=== PATIENT | female | born 1960 | race Caucasian/White ===

== ENCOUNTER 2016-10-10 14:57 | Emergency (ER) | payer OTHER ==
[~2016-10-10] VITALS: Ht 154.9 cm; Wt 57.3 kg
[~2016-10-10 14:57] MED LIST: ALBU6.7H INH; PRED20 PO; ZITH250T PO
[2016-10-10 15:10] VITALS: BP 109/72; PULSE 93; RESP 19; TEMP 98; O2SAT 97
[2016-10-10 15:15] VITALS: O2SAT 93
[2016-10-10 15:30] VITALS: O2SAT 95
[2016-10-10] MEDS: RESP: ALBUTEROL 2.5 MG/IPRATROPIUM 0.5 MG NEB (SCH) INH (15:30)
[2016-10-10] MEDS ORDERED: methylPREDNISolone SOD SUCC 125 MG/2 ML VIAL IVP ONE (15:30)
[2016-10-10] MEDS ORDERED: SODIUM CHLORIDE 0.9% FLUSH 10 ML FLUSH IVF PRN (15:30)
--- NOTE | 2016-10-10 15:33 | PD ---
HPI Chief Complaint: Respiratory Symptoms Time Seen by Provider: 15:18 Travel History International Travel<30 days: No Contact w/Intl Traveler<30days: No Traveled to known affect area: No History of Present Illness HPI 55 yo F arrives with dyspnea for about 1 week. Frequent cough reported. Pt seen here for apparent COPD about 1 year prior and received Albuterol inhaler which had conferred benefit until last day or two. Multiple family members with similar syndrome of cough, fever, rhinorrhea. Pt describes a "stuck" feeling in her chest however denies chest pain specifically. Pt somewhat equivocal about presence or absence of fever; as noted it appears family members did have fevers recently. MERIDA and orthopnea reported. PFSH Past Medical History Cardiovascular Problems: Yes (PALPITATIONS) Reproductive: Yes (CERVICAL DYSPLASIA-RESOLVED) ?: Not Menopausal: Yes : 3 Para: 3 Past Surgical History Section: Yes (X1) Tonsillectomy: Yes Social History Alcohol Use: Yes (SELDOM) Tobacco Use: Yes (1/2 PPD) Substance Use: No Allergies-Medications (Allergen,Severity, Reaction): Coded Allergies: Aspirin (Verified Adverse Reaction, Severe, Bleeding, 04/28/15) Reported Meds & Prescriptions Reported Meds & Active Scripts Active Cephalexin 500 Mg Tab 500 Mg PO Q6H Medrol Dosepak (Methylprednisolone) 4 Mg Dspk 4 Mg PO DIRECTED Per Pharmacist direction Ventolin Hfa 18 GM Inh (Albuterol Sulfate) 90 Mcg/Act Aer 2 Puff INH Q4-6H PRN Zithromax Z-Tito (Azithromycin) 250 Mg Tab 250 Mg PO DIRECTED Z-Pack Take as directed 2 tabs day one 1 tablet days 2 through 5 Deltasone (Prednisone) 20 Mg Tab 1 Tab PO BID Proventil Hfa (Albuterol Sulfate) 6.7 Gm Aero 2 Puff INH Q4HR NEEDED FOR SHORTNESS OF BREATH Review of Systems Except as stated in HPI: all other systems reviewed are Neg Respiratory: Positive: Cough, Shortness of Breath, Wheezing Physical Exam Narrative GENERAL: 55 yo F, WNWD, mild conversational dyspnea SKIN: Warm and dry. HEAD: Atraumatic. Normocephalic. EYES: Pupils equal and round. No scleral icterus. No injection or drainage. ENT: No nasal bleeding or discharge. Mucous membranes pink and moist. NECK: Trachea midline. No JVD. CARDIOVASCULAR: Regular rate and rhythm. RESPIRATORY: Tachypnea. Mild conversational dyspnea. GASTROINTESTINAL: Abdomen soft, non-tender, nondistended. Hepatic and splenic margins not palpable. MUSCULOSKELETAL: Extremities without clubbing, cyanosis, or edema. No obvious deformities. NEUROLOGICAL: Awake and alert. No obvious cranial nerve deficits. Motor grossly within normal limits. Five out of 5 muscle strength in the arms and legs. Normal speech. PSYCHIATRIC: Appropriate mood and affect; insight and judgment normal. Data Data Last Documented VS Vital Signs Date Time Temp Pulse Resp B/P Pulse Ox O2 Delivery O2 Flow Rate FiO2 10/10/16 17:21 95 16 117/64 99 10/10/16 15:30 Nasal Cannula 2.00 10/10/16 15:10 98.0 VS reviewed Orders Complete Blood Count With Diff (10/10/16 15:23) Basic Metabolic Panel (Bmp) (10/10/16 15:23) B-Type Natriuretic Peptide (10/10/16 15:23) Magnesium (Mg) (10/10/16 15:23) Ckmb (Isoenzyme) Profile (10/10/16 15:23) Troponin I (10/10/16 15:23) Iv Access Insert/Monitor (10/10/16 15:23) Electrocardiogram (10/10/16 15:23) Ecg Monitoring (10/10/16 15:23) Oximetry (10/10/16 15:23) Oxygen Administration (10/10/16 15:23) Chest, Single Ap (10/10/16 15:23) Sodium Chloride 0.9% Flush (Ns Flush) (10/10/16 15:30) Methylprednisolone So Succ Inj (Solumedr (10/10/16 15:30) Albuterol-Ipratropium Neb (Duoneb Neb) (10/10/16 15:30) CKMB (10/10/16 15:23) CKMB% (10/10/16 15:23) Labs Laboratory Tests Test 10/10/16 15:23 White Blood Count 6.7 TH/MM3 Red Blood Count 4.15 MIL/MM3 Hemoglobin 13.1 GM/DL Hematocrit 38.0 % Mean Corpuscular Volume 91.5 FL Mean Corpuscular Hemoglobin 31.5 PG Mean Corpuscular Hemoglobin 34.4 % Concent Red Cell Distribution Width 11.9 % Platelet Count 180 TH/MM3 Mean Platelet Volume 7.4 FL Neutrophils (%) (Auto) 63.1 % Lymphocytes (%) (Auto) 28.2 % Monocytes (%) (Auto) 7.6 % Eosinophils (%) (Auto) 0.8 % Basophils (%) (Auto) 0.3 % Neutrophils # (Auto) 4.2 TH/MM3 Lymphocytes # (Auto) 1.9 TH/MM3 Monocytes # (Auto) 0.5 TH/MM3 Eosinophils # (Auto) 0.1 TH/MM3 Basophils # (Auto) 0.0 TH/MM3 CBC Comment DIFF FINAL Differential Comment Sodium Level 137 MEQ/L Potassium Level 3.5 MEQ/L Chloride Level 103 MEQ/L Carbon Dioxide Level 26.4 MEQ/L Anion Gap 8 MEQ/L Blood Urea Nitrogen 7 MG/DL Creatinine 0.53 MG/DL Estimat Glomerular Filtration 121 ML/MIN Rate Random Glucose 93 MG/DL Calcium Level 8.6 MG/DL Magnesium Level 2.4 MG/DL Total Creatine Kinase 122 U/L Creatine Kinase MB 1.3 NG/ML Troponin I LESS THAN 0.02 NG/ML B-Type Natriuretic Peptide 78 PG/ML MDM Medical Decision Making Medical Screen Exam Complete: Yes Emergency Medical Condition: Yes Differential Diagnosis PNA, COPD, CHF, post-nasal drip, GERD, bronchitis, sepsis, anemia, renal failure Narrative Course Solumedrol and duonebs started. Lab workup and imaging pending at time of dictation. Case d/w with oncoming provider at 400pm. Diagnosis Primary Impression: COPD exacerbation Scripts Cephalexin 500 Mg [id number] Mg PO Q6H #28 TAB Ref 0 Prov:Osmani Gomes MD 10/10/16 Methylprednisolone Dosepak (Medrol Dosepak)4 Mg Dspk4 Mg PO DIRECTED #1 DSPK Ref 0 Per Pharmacist direction Prov:Osmani Gomes MD 10/10/16 Albuterol 18 GM Inh (Ventolin Hfa 18 GM Inh)90 Mcg/Act Aer2 Puff INH Q4-6H PRN ( SHORTNESS OF BREATH) #1 INHALER Ref 0 Prov:Osmani Gomes MD 10/10/16 Nimesh Mckeon MD October 10, 2016 15:33
[2016-10-10 15:54] LABS: AUTOMATED NEUTROPHIL # 4.2 TH/MM3 (1.8-7.7); BASOPHIL % 0.3 % (0.0-2.0); EOSINOPHIL # 0.1 TH/MM3 (0-0.4); EOSINOPHIL % 0.8 % (0.0-4.0); HEMO FLAGS DIFF FINAL; LYMPH % 28.2 % (9.0-44.0); LYMPHOCYTE # 1.9 TH/MM3 (1.0-4.8); MEAN CELL VOLUME 91.5 FL (80.0-100.0); MEAN CORPUSCULAR HEMOGLOBIN 31.5 PG (27.0-34.0); MEAN CORPUSCULAR HGB CONC 34.4 % (32.0-36.0); MONO % 7.6 % (0.0-8.0); NEUT % 63.1 % (16.0-70.0); PLATELET COUNT 180 TH/MM3 (150-450); RED BLOOD COUNT 4.15 MIL/MM3 (4.00-5.30); RED CELL DISTRIBUTION WIDTH 11.9 % (11.6-17.2); WHITE BLOOD COUNT 6.7 TH/MM3 (4.0-11.0)
--- NOTE | 2016-10-10 15:55 | RADHPO ---
EXAM DATE/TIME: 10/10/2016 15:41 [facility] COMPARISON: CHEST SINGLE AP, April 28, 2015, 19:04. INDICATIONS : Short of breath. MEDICAL HISTORY : Chronic obstructive pulmonary disease. Emphysema. SURGICAL HISTORY : None. ENCOUNTER: Initial ACUITY: 1 day PAIN SCORE: 2/10 LOCATION: Bilateral chest FINDINGS: A single view of the chest demonstrates the lungs to be symmetrically aerated without evidence of mas s, infiltrate or effusion. The cardiomediastinal contours are unremarkable. Osseous structures are intact. CONCLUSION: No acute disease. Marko Singleton MD on October 10, 2016 at 15:53 Board Certified Radiologist. This report was verified electronically.
[2016-10-10 16:09] LABS: CHLORIDE 103 MEQ/L (98-107); POTASSIUM 3.5 MEQ/L (3.5-5.1); SODIUM (NA) 137 MEQ/L (136-145)
[2016-10-10 16:12] LABS: ANION GAP 8 MEQ/L (5-15); BICARBONATE 26.4 MEQ/L (21.0-32.0); BLOOD UREA NITROGEN 7 MG/DL (7-18); MAGNESIUM 2.4 MG/DL (1.5-2.5)
[2016-10-10 16:15] LABS: GLOMERULAR FILTRATION RATE 121 ML/MIN (>89)
[2016-10-10 16:19] LABS: CREATINE KINASE 122 U/L (26-192)
[2016-10-10 16:31] LABS: CKMB 1.3 NG/ML (0.5-3.6)
--- NOTE | 2016-10-10 16:44 | PD ---
Physical Exam Date Seen by Provider: October 10, 2016 Time Seen by Provider: 16:32 Narrative This 55-year-old female had presented with complaint of shortness of breath. She has been diagnosed with COPD in the past. She uses an albuterol inhaler but is on no other medication. Multiple family members have had upper respiratory infection and she has had one for a couple of days. She has had 3 treatments here and is feeling a bit better. Her chest x-ray is negative. Lab work is unremarkable. Repeat examination shows the lungs to be clear. Patient will be released with prescription for Keflex, Medrol Dosepak and albuterol inhaler Data Data Last Documented VS Vital Signs Date Time Temp Pulse Resp B/P Pulse Ox O2 Delivery O2 Flow Rate FiO2 10/10/16 15:30 95 Nasal Cannula 2.00 10/10/16 15:10 98.0 93 19 109/72 Orders Complete Blood Count With Diff (10/10/16 15:23) Basic Metabolic Panel (Bmp) (10/10/16 15:23) B-Type Natriuretic Peptide (10/10/16 15:23) Magnesium (Mg) (10/10/16 15:23) Ckmb (Isoenzyme) Profile (10/10/16 15:23) Troponin I (10/10/16 15:23) Iv Access Insert/Monitor (10/10/16 15:23) Electrocardiogram (10/10/16 15:23) Ecg Monitoring (10/10/16 15:23) Oximetry (10/10/16 15:23) Oxygen Administration (10/10/16 15:23) Chest, Single Ap (10/10/16 15:23) Sodium Chloride 0.9% Flush (Ns Flush) (10/10/16 15:30) Methylprednisolone So Succ Inj (Solumedr (10/10/16 15:30) Albuterol-Ipratropium Neb (Duoneb Neb) (10/10/16 15:30) CKMB (10/10/16 15:23) CKMB% (10/10/16 15:23) Labs Laboratory Tests Test 10/10/16 15:23 White Blood Count 6.7 TH/MM3 Red Blood Count 4.15 MIL/MM3 Hemoglobin 13.1 GM/DL Hematocrit 38.0 % Mean Corpuscular Volume 91.5 FL Mean Corpuscular Hemoglobin 31.5 PG Mean Corpuscular Hemoglobin 34.4 % Concent Red Cell Distribution Width 11.9 % Platelet Count 180 TH/MM3 Mean Platelet Volume 7.4 FL Neutrophils (%) (Auto) 63.1 % Lymphocytes (%) (Auto) 28.2 % Monocytes (%) (Auto) 7.6 % Eosinophils (%) (Auto) 0.8 % Basophils (%) (Auto) 0.3 % Neutrophils # (Auto) 4.2 TH/MM3 Lymphocytes # (Auto) 1.9 TH/MM3 Monocytes # (Auto) 0.5 TH/MM3 Eosinophils # (Auto) 0.1 TH/MM3 Basophils # (Auto) 0.0 TH/MM3 CBC Comment DIFF FINAL Differential Comment Sodium Level 137 MEQ/L Potassium Level 3.5 MEQ/L Chloride Level 103 MEQ/L Carbon Dioxide Level 26.4 MEQ/L Anion Gap 8 MEQ/L Blood Urea Nitrogen 7 MG/DL Creatinine 0.53 MG/DL Estimat Glomerular Filtration 121 ML/MIN Rate Random Glucose 93 MG/DL Calcium Level 8.6 MG/DL Magnesium Level 2.4 MG/DL Total Creatine Kinase 122 U/L Creatine Kinase MB 1.3 NG/ML Troponin I LESS THAN 0.02 NG/ML B-Type Natriuretic Peptide 78 PG/ML [facility] Medical Record Reviewed: Yes Supervised Visit with RUBEN: Yes Differential Diagnosis Differential includes pneumonia, COPD, CHF Narrative Course Chest x-ray is read as negative. Patient is stable for discharge Diagnosis Primary Impression: COPD exacerbation Scripts Cephalexin 500 Mg [id number] Mg PO Q6H #28 TAB Ref 0 Prov:Osmani Gomes MD 10/10/16 Methylprednisolone Dosepak (Medrol Dosepak)4 Mg Dspk4 Mg PO DIRECTED #1 DSPK Ref 0 Per Pharmacist direction Prov:Osmani Gomes MD 10/10/16 Albuterol 18 GM Inh (Ventolin Hfa 18 GM Inh)90 Mcg/Act Aer2 Puff INH Q4-6H PRN ( SHORTNESS OF BREATH) #1 INHALER Ref 0 Prov:Osmani Gomes MD 10/10/16 Disposition: 01 DISCHARGE HOME Condition: Stable Osmani Gomes MD October 10, 2016 16:44
[2016-10-10] MEDS ORDERED: VENTAER INH (16:54)
[2016-10-10] MEDS ORDERED: CEPH500T PO (16:54)
[2016-10-10] MEDS ORDERED: MEDR4PAK PO (16:54)
[2016-10-10 17:21] VITALS: BP 117/64
--- NOTE | 2016-10-11 08:23 | EKG ---
Date Performed: 10/10/2016 Time Performed: 15:47:00 PTAGE: 55 years EKG: Sinus rhythm Normal ECG NO PREVIOUS TRACING DOCTOR: Gen Hare Interpretating Date/Time 10/11/2016 08:22:14
== END 2016-10-10 17:21 | disposition home or self-care (01) ==
LOC: PHED 14:57
DX: J44.1 Chronic obstructive pulmonary disease with (acute) exacerbation (principal); R06.00 Dyspnea, unspecified; Z79.899 Other long term (current) drug therapy
CPT/HCPCS: 71010; 80048; 82550; 82552; 83735; 83880; 84484; 85025; 93005; 94640; 94664; 96374; 99285; J2930